=== PATIENT | female | born 1995 | race Hispanic/Latino ===

== ENCOUNTER 2017-12-30 20:19 | Inpatient (IN) | payer MEDICAID ==
[~2017-12-30] VITALS: Ht 152.4 cm; Wt 114.8 kg
[2017-12-30 21:08] LABS: APPEARANCE,URINE Cloudy (CLEAR); BILIRUBIN,URINE Negative (NEGATIVE); COLOR,URINE Orange (YELLOW); GLUCOSE, URINE (UA) Negative (NEGATIVE); KETONES,URINE Negative (NEGATIVE); LEUKOCYTE ESTERASE ,URINE Small (NEGATIVE); NITRATE,URINE Negative (NEGATIVE); OCCULT BLOOD,URINE Large (NEGATIVE); PROTEIN,URINE POS 2+ (NEGATIVE)
[2017-12-30 21:14] LABS: RBC,URINE TNTC /HPF (0-1)
[2017-12-30 21:16] LABS: BACTERIA,URINE Rare /HPF (None Seen)
[2017-12-30 21:17] LABS: SQUAMOUS EPITHELIAL CELL,UR Rare /HPF (0-2)
[2017-12-30 21:29] LABS: BASOPHILS % (AUTO) 0.4 % (0.0-5.0); EOSINOPHILS % (AUTO) 2.8 % (0.0-8.0); LYMPHOCYTES % (AUTO) 19.6 % (21.0-51.0); MEAN CORPUSCULAR HEMOGLOBIN 20.1 pg (27.0-33.0); MEAN CORPUSCULAR HGB CONC 29.8 g/dL (32.0-36.0); MEAN CORPUSCULAR VOLUME 67.2 fL (80-100); MONOCYTES % (AUTO) 5.5 % (3.0-13.0); NEUTROPHILS % (AUTO) 71.7 % (40.0-77.0); NUCLEATED RED BLOOD CELLS 0.3 % (0.0-0.19); PLATELET COUNT (AUTO) 362 K/uL (130-400); RED BLOOD CELL COUNT(AUTO) 2.31 MIL/uL (4.00-5.50); RED CELL DISTRIBUTION WIDTH 19.5 % (11.0-15.5); WHITE BLOOD COUNT (AUTO) 11.6 K/uL (4.8-10.8)
[2017-12-30 21:36] LABS: HEMATOCRIT 15.5 % (36-48)
[2017-12-30 21:41] LABS: CREATININE 0.8 mg/dL (0.5-1.5)
[2017-12-30 21:46] LABS: ALBUMIN 3.4 g/dL (3.5-5.0); BILIRUBIN,TOTAL 0.2 mg/dL (0.2-1.0); TOTAL PROTEIN, SERUM 7.1 g/dL (6.0-8.3)
[2017-12-31] MEDS ORDERED: FUROSEMIDE 10 MG/ML 2ML VIAL ONE (00:10)
[2017-12-31] MEDS ORDERED: ACETAMINOPHEN EXTRA STRENGTH 500 MG TABLET ONE (00:33)
[2017-12-31] MEDS ORDERED: DIPHENHYDRAMINE HCL 25 MG CAPSULE ONE (00:33)
[2017-12-31 00:55] VITALS: BP 126/67
[2017-12-31 04:13] VITALS: BP 125/67
[2017-12-31] MEDS ORDERED: SODIUM CHLORIDE 0.9% 1000ML 1,000 ML IV ONE (04:15)
[2017-12-31] MEDS ORDERED: FUROSEMIDE 10 MG/ML 2ML VIAL IV SCH (04:30)
[2017-12-31 07:27] VITALS: BP 130/88
[2017-12-31 09:25] VITALS: BP 150/92
[2017-12-31 10:00] VITALS: BP 116/78
== END 2017-12-31 11:15 | disposition home or self-care (01) | DRG 532 ==
LOC: EDH 20:19 → EDHIP 20:20 → WSH 12-31 00:50
PROVIDERS: ADMIT Obstetrics & Gynecology; ATTEND Obstetrics & Gynecology
PROC: 30233N1 Transfusion of Nonautologous Red Blood Cells into Peripheral Vein, Percutaneous Approach (ICD-10-PCS; principal; 2017-12-30)
DX: N93.9 Abnormal uterine and vaginal bleeding, unspecified (principal); D64.9 Anemia, unspecified
CPT/HCPCS: 36415; 36430; 76856; 80053; 81001; 84702; 84703; 85025; 86850; 86900; 86901; 86922; J1940; J7030; P9016; Q0163

== ENCOUNTER 2024-02-28 22:52 | Emergency (ER) | payer MEDICAID ==
[~2024-02-28] VITALS: Ht 152.4 cm; Wt 117.9 kg
[2024-02-28 23:20] LABS: CREATININE 0.7 mg/dL (0.5-1.0); POTASSIUM 3.5 mmol/L (3.5-5.1)
[2024-02-28 23:46] LABS: ALBUMIN 3.2 g/dL (3.5-5.0); BILIRUBIN,TOTAL 0.3 mg/dL (0.2-1.0); TOTAL PROTEIN, SERUM 7.5 g/dL (6.0-8.3)
[2024-02-28] MEDS: ACETAMINOPHEN 500 MG TABLET PO ONE (23:51)
[2024-02-28 23:59] LABS: BASOPHILS # (AUTO) 0.07 K/uL (0.00-0.20); BASOPHILS % (AUTO) 0.6 % (0.0-5.0); EOSINOPHILS # (AUTO) 0.24 K/uL (0.00-0.70); HEMATOCRIT 28.8 % (36-48); IMMATURE GRANULOCYTE ABSOLUTE 0.05 K/uL (0-1); LYMPHOCYTES # (AUTO) 2.2 K/uL (1.0-4.8); LYMPHOCYTES % (AUTO) 18.3 % (21.0-51.0); MEAN CORPUSCULAR HEMOGLOBIN 16.6 pg (27.0-33.0); MEAN CORPUSCULAR HGB CONC 26.7 g/dL (32.0-36.0); MEAN CORPUSCULAR VOLUME 62.2 fL (79-99); MONOCYTES % (AUTO) 8.2 % (3.0-13.0); NEUTROPHILS # (AUTO) 8.3 K/uL (1.8-7.7); NEUTROPHILS % (AUTO) 70.5 % (40.0-77.0); NUCLEATED RED BLOOD CELLS 0.2 % (0.0-0.19); PLATELET COUNT (AUTO) 300 K/uL (130-400); RED BLOOD CELL COUNT(AUTO) 4.63 MIL/uL (4.00-5.50); RED CELL DISTRIBUTION WIDTH 23.4 % (11.0-15.5); WHITE BLOOD COUNT (AUTO) 11.8 K/uL (4.8-10.8)
[2024-02-29 00:18] LABS: APPEARANCE,URINE CLEAR (CLEAR); BILIRUBIN,URINE NEGATIVE (NEGATIVE); COLOR,URINE COLORLESS (YELLOW); GLUCOSE, URINE (UA) NEGATIVE (NEGATIVE); KETONES,URINE NEGATIVE (NEGATIVE); LEUKOCYTE ESTERASE ,URINE NEGATIVE Leu/uL (NEGATIVE); NITRATE,URINE NEGATIVE (NEGATIVE); PROTEIN,URINE NEGATIVE (NEGATIVE); UROBILINOGEN,URINE 0.2 mg/dL (0.2-1.0)
[2024-02-29 00:19] LABS: ADD UA MICROSCOPIC YES
[2024-02-29 00:20] LABS: BACTERIA,URINE RARE /HPF (None Seen); RBC,URINE 0-1 /HPF (0-1); SQUAMOUS EPITHELIAL CELL,UR RARE /HPF (0-2); WBC,URINE 0-1 /HPF (0-1)
[2024-02-29 01:58] VITALS: BP 142/68; PULSE 74; RESP 16; O2SAT 100
== END 2024-02-29 02:35 | disposition home or self-care (01) ==
LOC: EDH 22:52
DX: O20.0 Threatened abortion (principal); O99.019 Anemia complicating pregnancy, unspecified trimester; D64.89 Other specified anemias; Z3A.00 Weeks of gestation of pregnancy not specified; Z98.890 Other specified postprocedural states
CPT/HCPCS: 36415; 76801; 80053; 81001; 84702; 85025; 86900; 86901